=== PATIENT | female | born 1990 | race Caucasian/White ===

== ENCOUNTER → 2018-10-22 | Outpatient (REF) ==
[~2018-10-22] MED LIST: DILT120T11 PO; NORE-74 PO
[2018-10-22 08:07] LABS: LDL CHOLESTEROL 91 mg/dl
== END ==
DX: Z02.9 Encounter for administrative examinations, unspecified (principal)

== ENCOUNTER → 2018-12-28 | Outpatient (CLI) | payer OTHER ==
[~2018-12-28] MED LIST changes: +PREN-127 PO; +[UNRECOGNIZED DRUG - CODE]
[2018-12-28 16:55] LABS: PLATELET COUNT, AUTOMATED 239 K/uL (150-450)
== END ==
LOC: LAB 08:55
PROVIDERS: ATTEND Obstetrics & Gynecology
DX: Z34.91 Encounter for supervision of normal pregnancy, unspecified, first trimester (principal)
CPT/HCPCS: 36415; 81001; 85025; 86592; 86703; 86762; 86850; 86900; 86901; 87088; 87340

== ENCOUNTER → 2019-01-19 | Outpatient (CLI) | payer OTHER | LOC: LAB 13:43 | PROVIDERS: ATTEND Obstetrics & Gynecology | DX: Z34.91 Encounter for supervision of normal pregnancy, unspecified, first trimester (principal) | CPT/HCPCS: 87491; 87591 ==